=== PATIENT | female | born 1935 | race Caucasian/White ===

== ENCOUNTER → 2017-03-11 | Outpatient (CLI) | payer MEDICARE, BC ==
[~2017-03-11] MED LIST: TARKA 2/2401 BOTTLE PO
--- NOTE | ~2017-03-11 | MY24 ---
[facility] A Service of [facility] RADIOLOGY TEXT RESULTS PATIENT: DELPHINE ALMODOVAR LOCATION: [facility] : 35 UNIT #: [id number] AGE: [address]: Nick Diggs MD SEX: F ORDER DR: [id number] [facility] [address] [place], [place] [address] [id number] O MR#: [id number] #: [id number] NAME: DELPHINE ALMODOVAR : 1935 SEX: F STUDY DATE/TIME: 03/11/2017 9:58 UNIT: [facility] ROOM: STUDY DESCRIPTION: [facility] W/ CAD UNI Attending Physician: Nick Diggs M.D. Referring Physician: Nick Diggs M.D. Ordering Physician: Nick Diggs M.D. Primary Care Physician: Talha Madsen M.D. MEDICAL IMAGING REPORT This report is preliminary unless electronic signature is present EXAM Unilateral left digital diagnostic mammogram with CAD and targeted left breast ultrasound 03/11/2017 INDICATIONS 81-year-old female with a history of mastectomy for breast cancer on the right in 1983. Positive family history in the patient's mother at age 88. History of nipple discharge on the left (clear discharge) which has been previously evaluated and followed with mammography and ultrasound with the recommendation for return to routine screening in August of 2016. The patient indicates she is here for followup of clear nipple discharge but reports no new problems. She indicates 1 or 2 "drops" of clear discharge have occurred since our last evaluation in August of this year. She denies a palpable abnormality. TECHNIQUE CC, MLO true lateral and exaggerated CC lateral views of the left breast were obtained and reviewed with FDA-approved CAD device. COMPARISON Studies 09/11/2016 03/12/2016 10/24/2015 12/01/2014 and associated ultrasound studies. FINDINGS MAMMOGRAPHIC FINDINGS: Multiple skin mole markers are present. There are scar markers present from prior operative intervention. Breast parenchyma is composed of scattered fibroglandular densities the pattern is unchanged. Faint benign nodular densities in the left breast persist and have been previously documented as stable for more than 2 years and therefore benign as well. There are benign calcifications in the left breast. There is no new dominant nodule mass or suspicious clustered microcalcifications. Benign-appearing axillary nodes are present. There has been no significant change mammographically. Given the complaint of STS. [facility] A Service of [facility] RADIOLOGY TEXT RESULTS PATIENT: DELPHINE ALMODOVAR LOCATION: [facility] : 35 UNIT #: [id number] AGE: [address]: Nick Diggs MD SEX: F ORDER DR: nipple discharge and the history of breast cancer ultrasound of the subareolar left breast was thereafter performed. ULTRASOUND FINDINGS The patient was initially scanned independently by the technologist and then rescanned in my presence. Imaging of the subareolar left breast demonstrates prominence of the subareolar ductal system similar to prior studies. There is no intraluminal filling defect or other suspicious features to suggest intraluminal mass or other significant interval change. Findings between mammography and ultrasound are concordant. The patient reports no history of bloody nipple discharge or new palpable abnormality. Absent new or worsening symptoms in the left breast, a mammogram in 1 year is recommended. These findings and recommendations were discussed with the patient in great detail. She voiced understanding and agreement. IMPRESSION 1. Benign mammogram and targeted left breast ultrasound. Clinical considerations to determine additional imaging at this time. Absent new or worsening symptoms, the patient should plan on a mammogram in 1 year. 2. Given the history of chronic nipple discharge consideration of surgical excision is also recommended. Patients over the age of 40 are entered into a reminder system with target due date for the next mammogram. A result letter will also be sent to the patient. BIRADS: 2. Benign findings. Dictated by... Clark Trevino M.D. THIS IS AN ELECTRONICALLY VERIFIED REPORT Clark Trevino M.D. at 03/12/2017 1:41 PM SALO/toshia TD: 03/11/2017 16:16 JOB #: [id number] MEDICAL IMAGING REPORT Page 1 of 1 COPY
--- NOTE | ~2017-03-11 | US24 ---
[facility] A Service of [facility] RADIOLOGY TEXT RESULTS PATIENT: DELPHINE ALMODOVAR LOCATION: [facility] : 35 UNIT #: [id number] AGE: [address]: Nick Diggs MD SEX: F ORDER DR: [id number] [facility] [address] [place], [place] [address] [id number] O MR#: [id number] Acc #: [id number] NAME: DELPHINE ALMODOVAR : 1935 SEX: F STUDY DATE/TIME: 03/11/2017 10:29 UNIT: [facility] ROOM: STUDY DESCRIPTION: US Breast Unilateral Attending Physician: Nick Diggs M.D. Referring Physician: Nick Diggs M.D. Ordering Physician: Nick Diggs M.D. Primary Care Physician: Talha Madsen M.D. MEDICAL IMAGING REPORT This report is preliminary unless electronic signature is present EXAM Targeted ultrasound of the subareolar left breast 03/11/2017. FINDINGS Result text under bilateral diagnostic mammogram order. Please see this order for result text. BIRADS: 2 Benign findings. Dictated by... Clark Trevino M.D. THIS IS AN ELECTRONICALLY VERIFIED REPORT Clark Trevino M.D. at 03/12/2017 1:41 PM Annette TD: 03/11/2017 16:10 JOB #: [id number] MEDICAL IMAGING REPORT Page 1 of 1 COPY
== END | disposition home or self-care (01) ==
LOC: CMAM 09:34
DX: N64.52 Nipple discharge (principal)
CPT/HCPCS: 76641; G0206